=== PATIENT | male | born 1950 | race Caucasian/White ===

== ENCOUNTER 2019-08-14 16:09 | Emergency (ER) | payer MEDICARE, SELFPAY ==
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
--- NOTE | ~2019-08-14 | XR_ITS ---
EXAMINATION: XR chest 1V portable EXAM DATE: 08/14/2019 17:12 INDICATION: Unconscious. TECHNIQUE: Portable AP frontal chest x-ray was obtained. Comparison is made to prior examination from 01/31/2017. FINDINGS: Endotracheal tube tip is 4-5 centimeters above the tashi (ideal range is between 2 to 5 cm ). There is cardiomegaly. There is moderate amount of bilateral airspace disease with relative spari ng of the left upper lobe, probably edema and/or pneumonia. There is cardiomegaly, and cardiac silhou ette is larger than on previous examination. There is no pneumothorax suspected. There are no osseous abnormalities identified. IMPRESSION: 1. ET tube in position. 2. Moderate bilateral ARDS, edema and/or pneumonia. 3. Cardiomegaly. Reviewed, dictated and finalized at location A.
--- NOTE | 2019-08-14 16:12 | ED.AMS ---
HPI - Altered Mental Status General Chief Complaint: Shortness of Breath/Dyspnea Stated Complaint: UNRESPONSIVE Time Seen by Provider: 08/14/19 16:09 Source: EMS (All hx provided by) Mode of arrival: EMS Limitations: clinical condition History of Present Illness HPI narrative: A 69 y/o male presents to the ED via EMS from home after becoming unresponsive just [facility]ORT [facility]. Per EMS the pt had a fall, pt family staed he tripped while entering the house after returning from physical therapy appointment at 2:30 PM but the family denied any HI or LOC. They state that the family helped the pt into his chair and at that time and then the pt began to complain of SOB. They report that the family asked the pt if he wanted a EMS at that time but he denied wanting one. They state that the family told them that the pt then began to become less responsive, so they called them and upon their arrival the pt was unresponsive and his eyes were fixed to the rt. They report that they gave the pt 35 etomidate in route and attempted to intubate him, but were unable to do so they began to bag him. Pt then transported to our facility. POC glucose in the field >200. complaint: other (Unresponsive) Onset (ago): minute(s) (just RETORT [facility]IL[facility]URNER) Context: unknown Treatments prior to arrival: other (35 etomidate and bagged him) Review of Systems Review of Systems: ROS unobtainable: other (Unobtainable due to medical condition) Respiratory: Respiratory: Reports dyspnea Musculoskeletal: Musculoskeletal: Reports other (Fall) Neurologic: Reports other (Unresponsive. Denies: HI.) [facility] Past Medical History Medical History (Updated 08/14/19 @ 17:08 by Shantel Scott MD) LVAD (left ventricular assist device) present Medical history unknown Surgical History Surgical History (Updated 08/14/19 @ 16:26 by Ibrahima Soriano) Surgical history unknown Social History Social History (Updated 08/14/19 @ 16:28 by Ibrahima Soriano) Smoking status: Unknown if ever smoked Gender identity (if verbalized by the patient): Male Exam Narrative: Exam Narrative: GENERAL: Unconscious, unresponsive, being bagged by EMS HEAD: Normocephalic, atraumatic. EYES: Pinpoint, no extraocular movements ENT: Nares clear, no rhinorrhea or epistaxis. Mucous membranes moist. NECK: Supple. CHEST: Shallow respirations, no spontaneous respiration, clear breath sounds bilaterally without crackles HEART: Pulses not palpable, LVAD device present ABDOMEN: LVAD exit site in left abdomen, non-excoriated, no erythema or discharge EXTREMITIES: No spontaneous range of motion. SKIN: Cool, slightly diaphoretic NEURO: GCS 3 Course Course Emergency Course: Patient presented to the emergency department via EMS after becoming unconscious and unresponsive at home. At the time of initial assessment, the patient is sedated and eat as EMS had given the patient 35 mg of etomidate and attempt to intubate the patient. The patient was transferred to her hospital bed, he was intubated on first attempt without complications. Patient was cool, he was slightly warmed with a bear hugger until his core temperature improved. LVAD RPMs at 5200. Patient had no pulse as is typical with LVAD, but the battery is functioning, LVAD appears to be on, there is no alarm present. Patient has a manual pulse. Oxygenation on monitor is poor, however on ABG, patient has good oxygenation. I did ultrasound and Doppler pulses in the bilateral lower femoral arteries, and was able to use ultrasound to visualize the heart, did a bedside echo which showed no evidence of tamponade physiology. I spoke with the media center director school at [facility], who recommended our current work-up of the patient, and then transferred to their facility. Patient with CT that is concerning for left frontal lobe hypodensity, possibly acute infarction. No intracranial hemorrhage. Patient's INR is not supratherapeutic. Patient with elevation in BNP, troponin, this is likely to be expected
[2019-08-14 16:17] VITALS: BP 83/72; PULSE 79; RESP 16; TEMP 36.1; O2SAT 55
--- NOTE | 2019-08-14 16:19 | PC.NURSE ---
Dr. Scott at bedside intubating pt at this time VORB for 10 mg Etomidate @ 1519 100mg Rocuronium
[2019-08-14 16:25] VITALS: PULSE 73
--- NOTE | 2019-08-14 16:25 | PC.NURSE ---
7.5 tube, 23 at the lip, good color change. equal chest rise and fall
[2019-08-14 16:44] LABS: Base Excess ABG -9.9 mEq/l (+/-2.0); Fractional Inspired Oxygen 100 %; Methemoglobin ABG 0.1 %THb (0-1.5); Oxygen Content ABG 20.1 %vol (16.0-22.0); Oxygen Saturation ABG 98.3 % (95.0-100.0); Oxyhemoglobin 96.8 % THb (90.0-100.0); PCO2 ABG 46.6 mmHg (35.0-45.0); PO2 ABG 142.4 mmHg (80.0-100.0); PO2 FiO2 Ratio Arterial Blood 1.42 %; Reduced Hemoglobin 2.1 %THb (0-5.0); Total Hemoglobin 14.6 g/dL (12.0-18.0)
[2019-08-14 16:45] LABS: Arterial Blood Gas Ventilator rate 16 /MIN; Device VENTILATOR; Modified Allen's Test Pass; Site Drawn RIGHT RADIAL; pH ABG 7.204 (7.350-7.450)
[2019-08-14 16:46] LABS: Arterial Blood Gas PEEP 5 cmH2O; Arterial Blood Gas Tidal Volume 460 ml; Arterial Blood Gas Vent Mode CMV
--- NOTE | 2019-08-14 16:46 | PC.NURSE ---
Pt core temp is 96.9 degree. Fluid warmer and bear hugger applied
[2019-08-14 17:00] VITALS: O2SAT 96
[2019-08-14 17:03] LABS: Basophils Absolute Auto 0.1 K/mm3 (0.0-0.1); Basophils Percent Auto 0.5 % (0.2-1.2); Eosinophils Absolute Auto 0.2 K/mm3 (0-0.3); Eosinophils Percent Auto 1.2 % (0-4.4); Hematocrit 47.5 % (42.0-52.0); Hemoglobin 14.7 g/dL (14.0-18.0); Immature Granulocyte Absolute 0.37 K/mm3 (0.00-0.031); Immature Granulocyte Percent A 2.5 % (0-0.5); Lymphocytes Absolute Auto 1.22 K/mm3 (0.9-3.2); Lymphocytes Percent Auto 8.3 % (18.3-44.2); Mean Corpuscular HGB Conc 30.9 g/dl (32-36); Mean Corpuscular Hemoglobin 27.7 pg (26-34); Mean Corpuscular Volume 89.6 fl (80-100); Mean Platelet Volume 10.3 fl (7.4-10.4); Monocytes Absolute Auto 0.8 K/mm3 (0.1-0.6); Monocytes Percent Auto 5.2 % (2.6-8.5); Neutrophils Percent Auto 82.3 % (45.5-73.1); Platelet Count Result 195 k/mm3 (150-375); Red Cell Distribution Width 17.2 % (11.5-14.5); White Blood Count 14.6 K/mm3 (4.5-10.0)
[2019-08-14 17:15] LABS: Alanine Aminotransferase 45 U/L (4-50); Albumin Level 4.2 g/dL (3.5-5.1); Alkaline Phosphatase 106 U/L (38-126); Aspartate Amino Transferase 78 U/L (17-59); Bilirubin,Total 0.7 mg/dL (0.2-1.3); Blood Urea Nitrogen 23 mg/dL (9-20); Calcium 9.1 mg/dL (8.4-10.2); Carbon Dioxide 24 mmol/L (22-30); Chloride 100 mmol/L (98-107); Estimated CRCL calculation 49 ml/min; Estimated Glomerular Filt Rate 38; Glucose 220 mg/dL (75-110); INR 3.3; Potassium 5.5 mmol/L (3.4-5.0); Prothrombin Time 33.2 Seconds (11.1-14.7); Sodium 139 mmol/L (137-145)
[2019-08-14 17:16] LABS: Partial Thromboplastin Time 30.5 SECONDS (22.3-36.8)
[2019-08-14 17:19] VITALS: PULSE 984
[2019-08-14 17:19] LABS: Alanine Aminotransferase 46 U/L (4-50); Albumin Level 4.3 g/dL (3.5-5.1); Alkaline Phosphatase 108 U/L (38-126); Aspartate Amino Transferase 79 U/L (17-59); Bilirubin,Total 0.8 mg/dL (0.2-1.3); Blood Urea Nitrogen 23 mg/dL (9-20); CRP 1.1 mg/dL (<1.0); Calcium 9.1 mg/dL (8.4-10.2); Carbon Dioxide 20 mmol/L (22-30); Chloride 101 mmol/L (98-107); Estimated CRCL calculation 49 ml/min; Estimated Glomerular Filt Rate 38; Glucose 218 mg/dL (75-110); Potassium 5.4 mmol/L (3.4-5.0); Sodium 139 mmol/L (137-145)
[2019-08-14 17:21] VITALS: BP 109/88; PULSE 89; RESP 16; TEMP 37.7; O2SAT 84
[2019-08-14 17:32] LABS: NT Pro B Type Natriuretic Pept 4860 PG/ML (5-100); Troponin I 0.062 ng/mL (0.000-0.034)
--- NOTE | 2019-08-14 17:38 | PC.NURSE ---
Flight crew here at this time loading pt
[2019-08-14 17:39] LABS: Add Urine Microscopic? YES; Appearance Urine Clear (Clear); Bacteria Urine Trace /hpf; Bilirubin Urine Negative (Negative); Blood Urine Negative (Negative); Color Urine Yellow (Yellow); Glucose Urine UA 1+ mg/dL (Negative); Ketones Urine Negative (Negative); Leukocyte Esterase Ur Negative LEU/UL (Negative); Mucus Urine Rare /lpf; Nitrate Urine Negative (Negative); Protein Urine 2+ mg/dL (Negative); Specific Grav Ur 1.012 (1.001-1.035); Squamous Epithelial Cell Urine Rare /hpf (Few); Urobilinogen Urine Negative mg/dL (<2.0); WBC Urine 0-3 /hpf
[2019-08-14 17:41] LABS: Erythrocyte Sedimentation Rate 24 mm/hr (0-20)
[2019-08-14 17:57] VITALS: BP 109/88; PULSE 82; RESP 18; O2SAT 96
== END 2019-08-14 18:02 | disposition short-term general hospital (02) ==
PROVIDERS: Emergency Provider Emergency Medicine; PCP Internal Medicine Geriatric Medicine
DX: R40.20 Unspecified coma (principal); I51.7 Cardiomegaly; Z95.811 Presence of heart assist device; R06.02 Shortness of breath
CPT/HCPCS: 31500; 36415; 36600; 70450; 71045; 80053; 81001; 82375; 82805; 83050; 83880; 84484; 85025; 85610; 85652; 85730; 86140; 99291